=== PATIENT | female | born 1980 | race Caucasian/White ===

== ENCOUNTER 2016-08-08 23:18 | Emergency (ER) | payer MEDICAID ==
[~2016-08-08] VITALS: Ht 167.6 cm; Wt 54.4 kg
--- OUTSIDE RECORDS SUMMARY | 2016-08-08 23:50 | External Medical Summary Rpt ---
Author Author , Organization [employer] Address Unknown Phone Unavailable Care Team Providers Care Coremaker Floor Name Role Phone [facility] Unavailable Unavailable [facility] [place] [facility] DEMOND LAGOS Unavailable Unavailable ROGELIO MERCADO Unavailable Unavailable [facility], Unavailable Unavailable [facility] Unavailable [facility]available [facility], Unavailable [facility] Unavailable Unavailable [facility]available [facility]available [facility] Unavailable [facility]available HOSPITA, [facility] Un[facility], [facility] Un[facility], [facility] VALERIA GUEVARA, Unavailable Unavailable VALERIA GUEVARA SALLY RHO, SALLY Unavailable Unavailable [facility] Un[facility], [facility], Unavailable Unavailable [facility], [facility] Unavailable [facility] Unavailable Unavailable [facility], [facility] Unavailable Unavailable [facility], [facility] Saqib'Saqib WISE'TIFFANI Unavailable Unavailable [facility] LUZ ASHER, Unavailable Unavailable LU[facility] ASHER SHEEBALYUDMILA VAN, Unavailable Unavailable SHEEBA, LYUDMILA [facility], Unavailable Unavailable [facility], [facility]available Unavailable [facility] Unavailable Unavailable [facility] Unavailable Unavailable SALIMA NATI, SALIMA NATI [facility]available Unavailable [facility] Unavailable Unavailable [place] Unavailable Unavailable [place] Unavailable Unavailable [facility] SAIRA CHÁVEZ Unavailable Unavailable [facility], Unavailable Unavailable [facility] Unavailable Unavailable [facility], [facility] YONI SINGH YONI Unavailable Unavailable YONI GORDON Unavailable Unavailable SAMANTHA Purpose Continuity of Care Document - 06-24-2008 through 2016 Problems Code Diagnosis DOS Provider Status N920 EXCESS & 05-04-2016 [facility] FREQUENT [facility] MENSTRUATIO N W/REGULAR CYCLE Z302 ENCOUNTER 05-04-2016 [facility] STERILIZATI INC ON N854 MALPOSITION 05-03-2016 [facility] INC Q91648 ENCOUNTER 05-03-2016 [facility] PREPROCEDUR INC AL LABORATORY EXAM S83064 ENCOUNTER 03-29-2016 [facility] SHAREPOINT SPECIALIST EXAM LLC GENERAL RTN W/O ABNORMAL FIND Z113 ENCOUNTER 03-29-2016 [facility] SCREEN LLC INFECTIONS SEXL MODE TRANSMISSN 7242 LUMBAGO 11-21-2014 [facility] 7384 ACQUIRED 11-21-2014 [facility] THESIS S PLC 06794 PAIN IN 11-03-2014 [facility] JOINT, SHOULDER REGION 7231 CERVICALGIA 11-03-2014 [facility] 7262 OTHER 11-03-2014 [facility] AFFECTIONS OF SHOULDER REGION NEC 7802 SYNCOPE AND 09-19-2014 [facility] 87245 OTHER 09-19-2014 [facility] 7804 DIZZINESS 09-19-2014 [facility] GIDD[facility] 81368 CHEST PAIN 09-19-2014 [facility] UNSPECIFIED RADIOLOGY V154 PERS HX 02-03-2014 [facility] TRAUMA PRS [facility] 37772 PAIN IN 08-15-2013 YONI SINGH JOINT, FOREARM 59155 SPRAIN AND 08-15-2013 [facility] STRAIN OF UNSPECIFIED SITE OF WRIST V242 ROUTINE 05-02-2012 [facility] 650 NORMAL 03-22-2012 [facility] 734 FLAT FOOT 03-22-2012 [facility] V270 OUTCOME OF 03-22-2012 [facility] SERV SINGLE [facility] LIVEBORN V222 03-19-2012 [facility], SERV INCIDENTAL FOUND[facility] V221 SUPERVISION 12-27-2011 [facility] OTHER DIAGNOSTICS NORMAL V2881 ENCOUNTER 11-16-2011 [facility] FOR SERV ANATOMIC [facility] SURVEY 2662 OTHER 08-17-2011 [facility] S CENTER V7242 08-17-2011 [facility] OR TEST [facility] POSITIVE CENTER RESULT 53905 URGE 07-01-2008 [facility] INCONTINENC HEALTHCARE E CENTER V7231 ROUTINE 07-01-2008 [facility] GYNECOLOGIC HEALTHCARE AL CENTER EXAMINATION V745 SCREENING 07-01-2008 LABORATORY EXAMINATION [facility] FOR [facility] DISEASE V762 SCREENING 07-01-2008 LABORATORY FOR [facility] OF MALIGNANT SARA NEOPLASM OF HOLDINGS THE CERVIX 2512 HYPOGLYCEMI 06-27-2008 [facility] A, HEALTHCARE UNSPECIFIED CENTER 24560 OTHER 06-27-2008 LAB [facility] MALAISE AND AMERIC FATIGUE HOLDING 7906 OTHER 06-27-2008 LAB [facility] ABNORMAL AMERIC BLOOD HOLDING CHEMISTRY 6264 IRREGULAR 06-24-2008 [facility] MENSTRUAL HEALTHCARE CYCLE CENTER Medications Na ND Rx Da Fi Fi Am Da Di Ph RX Ph St me C No te ll ll ou ys ag ar # ys at rm s nt no ma ic us Or Da si cy ia de te s n re d OX 13 03 03 30 3 00 CL Ac YC 10 -0 -3 .0 00 IN ti OD 70 1- 1- 00 00 IC ve ON 04 20 20 42 E- 40 17 17 38 PH AC 1 32 AR ET MA AM CY IN OP HE N 5- 32 5 BR 60 12 01 18 3 00 WA Ac OM 43 -1 -2 0. 00 L- ti PH 20 6- 0- 00 07 MA ve EN 27 20 20 0 45 RT IR 51 16 17 91 -P 6 37 PH SE AR UD MA OE CY PH ED #5 -D 91 M SY R WI 65 04 10 04 30 30 WA 71 DA Ac EN 16 -2 -0 .0 L- 23 BN ti AT 20 8- 8- 00 MA 70 EY ve AL 66 20 20 RT 0 [address] 0 PH NA US AR MA TA CY BL ET #5 71 WI 65 04 08 03 30 30 WA 71 DA Ac EN 16 -2 -1 .0 L- 23 BN ti AT 20 8- 3- 00 MA 70 EY ve AL 66 20 20 RT 0 [address] 0 PH NA US AR MA TA CY BL ET #5 71 WI 65 04 07 02 30 30 WA 71 DA Ac EN 16 -2 -1 .0 L- 23 BN ti AT 20 8- 6- 00 MA 70 EY ve AL 66 20 20 RT 0 [address] 0 PH NA US AR MA TA CY BL ET #5 71 WI 65 04 06 01 30 30 WA 71 DA Ac EN 16 -2 -0 .0 L- 23 BN ti AT 20 8- 4- 00 MA 70 EY ve AL 66 20 20 RT 0 [address] 0 PH NA US AR MA TA CY BL ET #5 71 CH 00 04 05 00 47 10 WA 71 BA Ac LO 11 -1 -0 3. L- 22 LD ti RH 62 8- 7- 00 MA 13 WI ve EX 00 20 20 0 RT 6 N ID 11 09 09 AA IN 6 PH RO E AR N 0. MA B 12 CY % RI #5 NS 71 E WI 65 04 05 00 30 30 WA 71 DA Ac EN 16 -2 -0 .0 L- 23 BN ti AT 20 8- 7- 00 MA 70 EY ve AL 66 20 20 RT 0 [address] 0 PH NA US AR MA TA CY BL ET #5 71 00 04 05 00 30 5 WA 44 BA Ac 40 -1 -0 .0 L- 85 LD ti 60 8- 7- 00 MA 83 WI ve 35 20 20 RT 8 N 80 09 09 AA 1 PH RO AR N MA B CY #5 71 53 04 05 00 30 10 WA 71 BA Ac 74 -1 -0 .0 L- 22 LD ti 60 8- 7- 00 MA 13 WI ve 13 20 20 RT 4 N 70 09 09 AA 5 PH RO AR N MA B CY #5 71 PE 00 04 05 00 28 7 WA 71 BA Ac NI 78 -1 -0 .0 L- 22 LD ti CI 11 8- 7- 00 MA 13 WI ve LL 65 20 20 RT 5 N IN 50 09 09 AA 1 PH RO VK AR N MA B 50 CY 0 MG #5 71 TA BL ET Procedures Procedure DOS Code Location Performer Comment HYSTEROSC 12200 [facility] OPY 7 [facility] ENDOMETRI INC INC AL ABLATION LAPAROSCO 79836 RENEA MEIER PY W/RMVL 7 [facility] [address] [facility] SURG 7 LLC PATHOLOGY GROSS&[place] [address] [facility], [facility] SURG 7 LLC PATHOLOGY GROSS&BOBY ROSCOPIC EXAM ANESTHESI 37543 [facility] SAIRA A 7 ANESTH INTRAPERI OF THE TONEAL BLUE LOWER ABD W/LAPS NOS COLLECTIO 14943 [facility] N VENOUS 7 [facility] BLOOD INC INC VENIPUNCT URE GONADOTRO 11988 [facility] PIN 7 [facility] CHORIONIC INC INC QUALITATI VE BLOOD 86307 [facility] COUNT 7 [facility] COMPLETE INC INC AUTO&AUTO DIFRNTL WBC BASIC 93452 RENEA MEIER METABOLIC 7 [facility] PANEL INC INC CALCIUM TOTAL ENDOMETRI 55294 [facility] AL BX 7 PHYSICIAN PHYSICIAN W/WO S GROUP S GROUP ENDOCERVI X BX W/[place] L[place] [address] [facility], [facility], SURG 7 [facility] PATHOLOGY GROSS&[place] [address] [facility] TRANSVAGI 7 PHYSICIAN NAL S GROUP IADNA 80508 [facility], PICKLESIM NEISSERIA 7 [facility] JR GONORRHOE AE AMPLIFIED PROBE TQ CYTP C/V 10140 [facility] P[facility] AUTO THIN 7 [facility] JR LYR PREPJ SCR MNL RESCR PHYS IADNA 97473 [facility], P[facility] CHLAMYDIA 7 [facility] JR TRACHOMAT IS AMPLIFIED PROBE TQ RADEX 51840 [facility] TRA SPINE 5 [place] LUMBOSACR ORTHOPAED AL ONLY ICS PLC BENDING 2/3 VIEWS RADEX 58353 [facility] [place] SALLY SHOULDER 5 RADIOLOGY RHO COMPLETE MINIMUM 2 VIEWS RADEX 90586 [facility] [place] SALLY SPINE 5 RADIOLOGY RHO LUMBOSACR AL 2/3 VIEWS RADEX 93733 [facility] [place] SALLY SPINE 5 RADIOLOGY RHO CERVICAL 2 OR 3 VIEWS AMB A0427 [facility] SERVICE 5 EWELINA [facility] EMS CO EMS [place] [address] [facility] [place] S[facility] HEAD/BRAI 5 RADIOLOGY RHO N W/O CONTRAST MATERIAL RADIOLOGI 79082 [facility] [place] SALLY C 5 RADIOLOGY RHO EXAMINATI ON CHEST SINGLE VIEW FRONTAL ECG 43353 [facility] NATI ROUTINE 5 KIN ECG EMERGENCY W/LEAST PHYS 12 LDS I&R ONLY GROUND A0425 [facility] MILEA 5 EWELINA THEODORE PER CO EMS CO EMS STATUTE MILE RADEX 41209 [facility] WRIST 4 [facility] HOSP MINIMUM 3 VIEWS WRIST L3908 [facility] HAND 4 ORTHOSIS EXT CONTROL COCK-UP PREFAB VAGINAL 71671 [facility] DELIVERY 3 MEDICAL LIVESTOCK RANCH HAND ONLY SERV W/POSTPAR FOUNDATIO [facility] 734 [facility] INDUCTION 3 N N OF LABOR [facility] HOSPITA OTHER 7309 [facility] ARTIFICIA 3 N N L [facility] MEMBRANES EPISIOTOM 736 [facility] Y 3 N N [facility] HOSPITA OTHER 7359 [facility] MANUALLY 3 N N ASSISTED [facility] DELIVERY HOSPITA HOSPITA URNLS DIP 45004 [facility] 2 MEDICAL LIVESTOCK RANCH HAND STICK/TAB SERV LET RGNT FOUNDATIO AUTO W/O MICROSCOP Y CUL 14908 [facility] PRSMPTV 2 DIAGNOSTI DIAGNOSTI PTHGNC CS CS ORGANISM SCRN W/COLONY ESTIMJ URNLS DIP 45172 [facility] 2 MEDICAL LIVESTOCK RANCH HAND STICK/TAB SERV LET RGNT FOUNDATIO AUTO W/O MICROSCOP Y URNLS DIP 46577 [facility] 2 MEDICAL LIVESTOCK RANCH HAND STICK/TAB SERV LET RGNT FOUNDATIO AUTO W/O MICROSCOP Y COLLECTIO 27277 [facility] N VENOUS 2 DIAGNOSTI DIAGNOSTI BLOOD CS CS VENIPUNCT URE GLUCOSE 28203 [facility] POST 2 DIAGNOSTI DIAGNOSTI GLUCOSE CS CS DOSE US PREG 79623 [place] O'TIFFANI UTERUS 2 MEDICAL ELIZABETH AFTER 1ST SERV TRIMEST FOUNDATIO 1/ GESTATION CULTURE 63636 [facility] BACTERIAL 2 DIAGNOSTI DIAGNOSTI CS CS QUANTTATI VE COLONY COUNT URINE URNLS DIP 80907 [place] 2 MEDICAL MEDICAL STICK/TAB SERV SERV LET RGNT FOUNDATIO FOUNDATIO AUTO W/O MICROSCOP Y US PREG 04314 [place] UTERUS 2 MEDICAL MEDICAL REAL TIME SERV SERV W/IMAGE FOUNDATIO FOUNDATIO DCMTN TRANSVAG CYTP C/V 55283 [facility] AUTO THIN 2 DIAGNOSTI DIAGNOSTI LYR CS CS PREPJ SCR MNL RESCR PHYS IADNA 93949 [facility] NEISSERIA 2 DIAGNOSTI DIAGNOSTI CS CS GONORRHOE AE AMPLIFIED PROBE TQ IADNA 16535 [facility] CHLAMYDIA 2 DIAGNOSTI DIAGNOSTI CS CS TRACHOMAT IS AMPLIFIED PROBE TQ URINE 13493 [facility] 2 [facility] CENTER COLOR CMPRSN METHS URINE 37230 MAKENZIE GUEVARA, 9 [facility]ALTHCAR VALERIA W TEST E CENTER VISUAL COLOR CMPRSN METHS IADNA 00663 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 CHLAMYDIA 9 Y STACIA OF Y STAC[facility] OF [place] TRACHOMAT HOLDINGS HOLDINGS IS AMPLIFIED PROBE TQ IADNA 58872 LABORATOR LABORATOR NEISSERIA 9 Y STACIA OF Y [facility] [place] GONORRHOE HOLDINGS HOLDINGS AE AMPLIFIED PROBE TQ CYTP C/V 91436 LABORATOR LABORATOR AUTO THIN 9 Y STACIA OF Y STACIA OF LYR [place] PREPJ SCR HOLDINGS HOLDINGS MNL RESCR PHYS IADNA 97370 LABORATOR LABORATOR PAPILLOMA 9 Y STACIA OF Y STACIA OF VIRUS [place] HUMAN HOLDINGS HOLDINGS AMPLIFIED PROBE TQ URNLS DIP 38670 HORIZON GRAVES, 9 HEALTHCAR VALERIA W STICK/TAB E CENTER LET RGNT AUTO W/O MICROSCOP Y COLLECTIO 66359 MAKENZIE GUEVARA, N VENOUS 9 [facility] VALERIA W BLOOD E CENTER VENIPUNCT URE LIPID 99087 LAB ST[facility] LAB STACIA PANEL 9 AMERIC AMER[facility] HOLDING HOLDING GENERAL 73178 LAB STACIA LAB STACIA HEALTH 9 AMERIC AMERIC PANEL HOLDING HOLDING Encounters Encounter Start End Date Code Location Performer Type Date [facility] RENEA - 7 7 [facility] RENEA - 7 7 [facility] OUTPATIEN INC INITIAL 12506 [facility] PREVENTIV 7 7 PHYSICIAN E S GROUP MEDICINE NEW PT AGE 18-39YRS OFFICE 58171 [facility] TRA CONSULTAT 5 5 [place] ION ORTHOPAED NEW/ESTAB ICS PLC PATIENT 40 MIN OFFICE 50343 [facility] OUTPATIEN 5 5 T VISIT 15 MINUTES OFFICE 23218 [facility] OUTPATIEN 5 5 T [facility] 30 MINUTES [facility] - 5 5 N OUTPATIEN COMMUNTIY T HOSPITA EMERGENCY 11274 [facility] DEPT 5 5 KIN VISIT EMERGENCY HIGH PHYS SEVERITY& THREAT FUNCJ OFFICE 97160 [facility]LE[facility] VALLEJO OUTPATIEN 4 4 SAMANTHA SAMANTHA T [facility] 20 MINUTES [facility] CENTRAL - 4 4 [facility] OUTPATIEN HOSP T OFFICE 11320 [facility] MEEKSMAN OUTPATIEN 3 3 MEDICAL LIVESTOCK RANCH HAND T VISIT SERV 15 FOUNDATIO MINUTES [facility] - 3 3 N INPATIENT COMMUNITY HOSPITA OFFICE 05498 [facility] MUHAMMAD OUTPATIEN 3 3 MEDICAL LIVESTOCK RANCH HAND T VISIT SERV 15 FOUNDATIO MINUTES OFFICE 44548 [facility] MUHAMMAD OUTPATIEN 3 3 MEDICAL LIVESTOCK RANCH HAND T VISIT SERV 15 FOUNDATIO MINUTES OFFICE 52064 CONST[facility]IN MEEKSMAN OUTPATIEN 3 3 MEDICAL LIVESTOCK RANCH HAND T VISIT SERV 15 FOUNDATIO MINUTES OFFICE 66602 [facility] AARONJB OUTPATIEN 3 3 MEDICAL LIVESTOCK RANCH HAND T VISIT SERV 15 FOUNDATIO MINUTES OFFICE 75294 CONSTANTIN MEEKSMAN OUTPATIEN 2 2 MEDICAL LIVESTOCK RANCH HAND T VISIT SERV 15 FOUNDATIO MINUTES OFFICE 32184 CONST[facility]IN MEEKSMAN OUTPATIEN 2 2 MEDICAL LIVESTOCK RANCH HAND T VISIT SERV 15 FOUNDATIO MINUTES OFFICE 87966 CONSTANTIN MEEKSMAN OUTPATIEN 2 2 MEDICAL LIVESTOCK RANCH HAND T VISIT SERV 15 FOUNDATIO MINUTES OFFICE 38499 CONST[facility]IN AARONJB OUTPATIEN 2 2 MEDICAL LIVESTOCK RANCH HAND T VISIT SERV 15 FOUNDATIO MINUTES OFFICE 68074 CONST[facility]IN AARONJB OUTPATIEN 2 2 MEDICAL LIVESTOCK RANCH HAND T VISIT SERV 15 FOUNDATIO MINUTES OFFICE 55879 CONSTANTIN AARONJB OUTPATIEN 2 2 MEDICAL LIVESTOCK RANCH HAND T VISIT SERV 15 FOUNDATIO MINUTES OFFICE 39032 CONSTANTIN AARONJB OUTPATIEN 2 2 MEDICAL LIVESTOCK RANCH HAND T VISIT SERV 15 FOUNDATIO MINUTES OFFICE 87253 CONSTANTIN AARONJB OUTPATIEN 2 2 MEDICAL LIVESTOCK RANCH HAND T VISIT SERV 15 FOUNDATIO MINUTES N OFFICE 13615 MS OUTPATIEN 2 2 MEDICAL T NEW 30 SERV MINUTES FOUNDATIO OFFICE 74744 NACHO NACHO OUTPATIEN 2 2 [facility] 20 [facility] HEALTH MINUTES CENTER CENTER PERIODIC 02155 HORIZON GRAVES, PREVENTIV 9 9 [facility] VALERIA W E MED EST E CENTER PATIENT 18-39 YRS OFFICE 12804 MAKENZIE SHEEBA, OUTPATIEN 9 9 [facility] NEW 30 E CENTER MINUTES
--- OUTSIDE RECORDS SUMMARY | 2016-08-08 23:50 | External Medical Summary Rpt ---
Author Author , Organization [employer] Address Unknown Phone Unavailable Care Team Providers Care Linotyper Name Role Phone [facility], Unavailable Unavailable [facility] [place] [facility] DEMOND LAGOS Unavailable Unavailable ROGELIO MERCADO Unavailable Unavailable [facility], Unavailable Unavailable [facility] Unavailable [facility]available [facility], Unavailable [facility] Unavailable Unavailable [facility]available [facility]available [facility] Unavailable Unavailable HOSPITA, [facility] Unavailable Unavailable EMS, [facility] Unavailable Unavailable EMS, [facility] VALERIA GUEVARA, Unavailable Unavailable VALERIA GUEVARA SALLY RHO, SALLY Unavailable Unavailable [facility] Un[facility] Un[facility], [facility], Unavailable Unavailable [facility] GUILLORY TRA, GUILLORY TRA Unavailable [...] Unavailable SALIMA NATI, SALIMA NATI Unavailable Unavailable [facility] Unavailable Unavailable [facility], [facility] Unavailable Unavailable [facility], [facility] Unavailable Unavailable [facility] SAIRA CHÁVEZ Unavailable Unavailable [facility], Unavailable Unavailable [facility] Unavailable Unavailable #571, [facility] [...] 05-03-2016 [facility] [id number] ENCOUNTER 05-03-2016 [facility] PREPROCEDUR INC AL LABORATORY EXAM [id number] ENCOUNTER 03-29-2016 [facility], ACETYLENE TORCH SOLDERER EXAM LLC GENERAL RTN W/O ABNORMAL FIND Z113 ENCOUNTER 03-29-2016 [facility], SCREEN LLC INFECTIONS SEXL MODE TRANSMISSN 7242 LUMBAGO 11-21-2014 [facility] 7384 ACQUIRED 11-21-2014 [facility] THESIS S PLC 72414 PAIN IN 11-03-2014 [facility] JOINT, SHOULDER REGION 7231 CERVICALGIA 11-03-2014 [facility] 7262 OTHER 11-03-2014 [facility] AFFECTIONS OF SHOULDER REGION NEC 7802 SYNCOPE AND 09-19-2014 [facility] 08272 OTHER 09-19-2014 [facility] 7804 DIZZINESS 09-19-2014 [facility]- AND [facility] GIDDINESS EMS 89437 CHEST PAIN 09-19-2014 [facility] UNSPECIFIED RADIOLOGY V154 PERS HX 02-03-2014 [facility] TRAUMA PRS [facility] 24381 PAIN IN 08-15-2013 YONI SINGH JOINT, FOREARM 82526 SPRAIN AND 08-15-2013 [facility] STRAIN OF UNSPECIFIED SITE OF WRIST V242 ROUTINE 05-02-2012 [facility] FOLLOW-UP F[facility] 650 NORMAL 03-22-2012 [facility] 734 FLAT FOOT 03-22-2012 [facility] V270 OUTCOME OF 03-22-2012 [facility] SINGLE FOUNDATIO LIVEBORN V222 03-19-2012 [facility], SERV INCIDENTAL FOUNDATIO V221 SUPERVISION 12-27-2011 [facility] OTHER DIAGNOSTICS NORMAL V2881 ENCOUNTER 11-16-2011 [facility] FOR SERV ANATOMIC FOUNDATIO SURVEY 2662 OTHER 08-17-2011 [facility] S CENTER V7242 08-17-2011 [facility] OR TEST [facility] POSITIVE CENTER RESULT 10615 URGE 07-01-2008 [facility] INCONTINENC HEALTHCARE E CENTER V7231 ROUTINE 07-01-2008 [facility] GYNECOLOGIC HEALTHCARE AL CENTER EXAMINATION V745 SCREENING 07-01-2008 LABORATORY EXAMINATION STACIA OF FOR SARA VENEREAL HOLDINGS DISEASE V762 SCREENING 07-01-2008 LABORATORY FOR STACIA OF MALIGNANT SARA NEOPLASM OF HOLDINGS THE CERVIX 2512 HYPOGLYCEMI 06-27-2008 [facility] A, HEALTHCARE UNSPECIFIED CENTER 39570 OTHER 06-27-2008 LAB STACIA MALAISE AND AMERIC FATIGUE HOLDING 7906 OTHER 06-27-2008 LAB STACIA ABNORMAL AMERIC BLOOD HOLDING CHEMISTRY 6264 IRREGULAR 06-24-2008 [facility] MENSTRUAL HEALTHCARE CYCLE CENTER Medications Na ND [...] ED #5 -D 91 M SY R DC 65 04 10 04 30 30 WA 71 DA Ac EN 16 -2 -0 .0 L- 23 BN ti AT 20 8- 8- 00 MA 70 EY ve AL 66 20 20 RT 0 [address] 0 PH NA US AR MA TA CY BL ET #5 71 DC 65 04 08 03 30 30 WA 71 DA Ac EN 16 -2 -1 .0 L- 23 BN ti AT 20 8- 3- 00 MA 70 EY ve AL 66 20 20 RT 0 [address] 0 PH NA US AR MA TA CY BL ET #5 71 DC 65 04 07 02 30 30 WA 71 DA Ac EN 16 -2 -1 .0 L- 23 BN ti AT 20 8- 6- 00 MA 70 EY ve AL 66 20 20 RT 0 [address] 0 PH NA US AR MA TA CY BL ET #5 71 DC 65 04 06 01 30 30 WA [...] CY % RI #5 NS 71 E DC 65 04 05 00 30 30 WA [...] Procedure DOS Code Location Performer Comment HYSTEROSC 70222 [facility] OPY 7 [facility] ENDOMETRI INC INC AL ABLATION LAPAROSCO 97060 RENEA MEIER PY W/RMVL 7 [facility] [place] [address] [facility], DEMOND SURG 7 LLC PATHOLOGY GROSS&[place] [address] [facility], [facility] SURG 7 LLC PATHOLOGY GROSS&BOBY ROSCOPIC EXAM ANESTHESI 25368 COMMUNITY SAIRA A 7 ANESTH INTRAPERI OF THE TONEAL BLUE LOWER ABD W/LAPS NOS COLLECTIO 59181 [facility] N VENOUS 7 [facility] BLOOD INC INC VENIPUNCT URE GONADOTRO 21771 [facility] PIN 7 [facility] CHORIONIC INC INC QUALITATI VE BLOOD 48714 [facility] COUNT 7 [facility] COMPLETE INC INC AUTO&AUTO DIFRNTL WBC BASIC 04699 RENEA MEIER METABOLIC 7 [facility] PANEL INC INC CALCIUM TOTAL ENDOMETRI 24442 [facility] AL BX 7 PHYSICIAN PHYSICIAN W/WO S GROUP S GROUP ENDOCERVI X BX W/[place] [address] [facility], [facility] SURG 7 [facility] PATHOLOGY GROSS&[place] [address] [facility] MERCADO TRANSVAGI 7 PHYSICIAN NAL S GROUP IADNA 02168 [facility], PICKLESIM NEISSERIA [facility] ER JR GONORRHOE AE AMPLIFIED PROBE TQ CYTP C/V 92121 [facility] PICKLES[facility] AUTO THIN 7 [facility] ER JR LYR PREPJ SCR MNL RESCR PHYS IADNA 73026 [facility], PICKLESIM CHLAMYDIA 7 [facility] ER JR TRACHOMAT IS AMPLIFIED PROBE TQ RADEX 77148 [facility] TRA SPINE 5 [place] LUMBOSACR ORTHOPAED AL ONLY ICS PLC BENDING 2/3 VIEWS RADEX 14524 [facility] [place] SALLY SHOULDER 5 RADIOLOGY RHO COMPLETE MINIMUM 2 VIEWS RADEX 36587 [facility] [place] SALLY SPINE 5 RADIOLOGY RHO LUMBOSACR AL 2/3 VIEWS RADEX 63904 [facility] [place] SALLY SPINE 5 RADIOLOGY RHO CERVICAL 2 OR 3 VIEWS AMB A0427 [facility] SERVICE 5 EWELINA [facility] ALS CO EMS CO EMS [place]SP[place] [address] [facility] [place] SALLY HEAD/BRAI 5 RADIOLOGY RHO N W/O CONTRAST MATERIAL RADIOLOGI 93793 [facility] [place] SALLY C 5 RADIOLOGY RHO EXAMINATI ON CHEST SINGLE VIEW FRONTAL ECG 01019 [facility] NATI ROUTINE 5 KIN ECG EMERGENCY W/LEAST PHYS 12 LDS I&R ONLY GROUND A0425 [facility] MILEA 5 EWELINA THEODORE PER CO EMS CO EMS STATUTE MILE RADEX 50080 [facility] W[facility]ST 4 [facility] HOSP MINIMUM 3 VIEWS WRIST L3908 [facility] HAND 4 ORTHOSIS EXT CONTROL COCK-UP PREFAB VAGINAL 56188 [facility] DELIVERY 3 MEDICAL MOBILE HOME MECHANIC ONLY SERV W/POSTPAR FOUNDATIO [facility]ICAL 734 [facility] INDUCTION 3 N N OF LABOR [facility] HOSPITA OTHER 7309 [facility] ARTIFICIA 3 N N L RUPTURE [facility] EPISIOTOM 736 [facility] Y 3 N N [facility] HOSP[facility] HOSPITA OTHER 7359 [facility] MANUALLY 3 N N ASSISTED [facility] DELIVERY HOSPITA HOSPITA URNLS DIP 68938 [facility] 2 MEDICAL MOBILE HOME MECHANIC STICK/TAB SERV LET RGNT FOUNDATIO AUTO W/O MICROSCOP Y CUL 59040 [facility] PRSMPTV 2 DIAGNOSTI DIAGNOSTI PTHGNC CS CS ORGANISM SCRN W/COLONY ESTIMJ URNLS DIP 79074 [facility] 2 MEDICAL MOBILE HOME MECHANIC STICK/TAB SERV LET RGNT FOUNDATIO AUTO W/O MICROSCOP Y URNLS DIP 56666 [facility] 2 MEDICAL MOBILE HOME MECHANIC STICK/TAB SERV LET RGNT FOUNDATIO AUTO W/O MICROSCOP Y COLLECTIO 41879 [facility] N VENOUS 2 DIAGNOSTI DIAGNOSTI BLOOD CS CS VENIPUNCT URE GLUCOSE 58912 [facility] POST 2 DIAGNOSTI DIAGNOSTI GLUCOSE CS CS DOSE US PREG 37182 [place] O'TIFFANI UTERUS 2 MEDICAL ELIZABETH AFTER 1ST SERV TRIMEST FOUNDATIO 1/ GESTATION CULTURE 91466 [facility] BACTERIAL 2 DIAGNOSTI DIAGNOSTI CS CS QUANTTATI VE COLONY COUNT URINE URNLS DIP 85807 [place] 2 MEDICAL MEDICAL STICK/TAB SERV SERV LET RGNT FOUNDATIO FOUNDATIO AUTO W/O MICROSCOP Y US PREG 38836 [place] UTERUS 2 MEDICAL MEDICAL REAL TIME SERV SERV W/IMAGE FOUNDATIO FOUNDATIO DCMTN TRANSVAG CYTP C/V 56586 [facility] AUTO THIN 2 DIAGNOSTI DIAGNOSTI LYR CS CS PREPJ SCR MNL RESCR PHYS IADNA 41015 [facility] NEISSERIA 2 DIAGNOSTI DIAGNOSTI CS CS GONORRHOE AE AMPLIFIED PROBE TQ IADNA 38921 [facility] CHLAMYDIA 2 DIAGNOSTI DIAGNOSTI CS CS TRACHOMAT IS AMPLIFIED PROBE TQ URINE 25195 [facility] 2 [facility] VISUAL CENTER CENTER COLOR CMPRSN METHS URINE 73186 MAKENZIE GUEVARA, 9 [facility] W TEST E CENTER VISUAL COLOR CMPRSN METHS IADNA 39899 LABORATOR LABORATOR CHLAMYDIA 9 Y STACIA OF Y STACIA OF [place] TRACHOMAT HOLDINGS HOLDINGS IS AMPLIFIED PROBE TQ IADNA 65362 LABORATOR LABORATOR NEISSERIA 9 Y STACIA OF Y STACIA [place] GONORRHOE HOLDINGS HOLDINGS AE AMPLIFIED PROBE TQ CYTP C/V 98871 LABORATOR LABORATOR AUTO THIN 9 Y STACIA OF Y STACIA OF LYR [place] PREPJ SCR HOLDINGS HOLDINGS MNL RESCR PHYS IADNA 46611 LABORATOR LABORATOR PAPILLOMA 9 Y STACIA OF Y STACIA OF VIRUS [place] HUMAN HOLDINGS HOLDINGS AMPLIFIED PROBE TQ URNLS DIP 01627 HORIZON GRAVES, 9 [facility]ALTHCAR VALERIA W STICK/TAB E CENTER LET RGNT AUTO W/O MICROSCOP Y COLLECTIO 85164 MAKENZIE GUEVARA, N VENOUS 9 [facility] VALERIA W BLOOD E CENTER VENIPUNCT URE LIPID 27973 LAB STACIA LAB STACIA PANEL 9 AMERIC AMERIC HOLDING HOLDING GENERAL 51606 LAB STACIA LAB STACIA HEALTH 9 AMERIC AMERIC PANEL HOLDING HOLDING Encounters Encounter Start End Date Code Location Performer Type Date [facility] RENEA - 7 7 [facility] OUTPATIEN INC [facility] RENEA - 7 7 [facility] OUTPATIEN INC INITIAL 77050 [facility] PREVENTIV 7 7 PHYSICIAN E S GROUP MEDICINE NEW PT AGE 18-39YRS OFFICE 39567 [facility] TRA CONSULTAT 5 5 [place] ION ORTHOPAED NEW/ESTAB ICS PLC PATIENT 40 MIN OFFICE 04041 [facility] OUTPATIEN 5 5 T VISIT 15 MINUTES OFFICE 88040 [facility] OUTPATIEN 5 5 T [facility] 30 MINUTES [facility] - 5 5 N OUTPATIEN COMMUNTIY T HOSPITA EMERGENCY 48983 [facility] DEPT 5 5 KIN VISIT EMERGENCY HIGH PHYS SEVERITY& THREAT FUNCJ OFFICE 49206 [facility] VALLEJO OUTPATIEN 4 4 SAMANTHA SAMANTHA T [facility] 20 MINUTES [facility] CENTRAL - 4 4 [facility] OUTPATIEN HOSP T OFFICE 50936 CONSTANT[facility] MEEKSMAN OUTPATIEN 3 3 MEDICAL MOBILE HOME MECHANIC T VISIT SERV 15 FOUNDATIO MINUTES [facility] - 3 3 N INPATIENT COMMUNITY HOSPITA OFFICE 70543 CONST[facility]IN MUHAMMAD OUTPATIEN 3 3 MEDICAL MOBILE HOME MECHANIC T VISIT SERV 15 FOUNDATIO MINUTES OFFICE 70757 [facility] MUHAMMAD OUTPATIEN 3 3 MEDICAL MOBILE HOME MECHANIC T VISIT SERV 15 FOUNDATIO MINUTES OFFICE 67034 CONSTANTIN MEEKSMAN OUTPATIEN 3 3 MEDICAL MOBILE HOME MECHANIC T VISIT SERV 15 FOUNDATIO MINUTES OFFICE 06645 CONSTANTIN AARONJB OUTPATIEN 3 3 MEDICAL MOBILE HOME MECHANIC T VISIT SERV 15 FOUNDATIO MINUTES OFFICE 18032 CONSTANTIN MEEKSMAN OUTPATIEN 2 2 MEDICAL MOBILE HOME MECHANIC T VISIT SERV 15 FOUNDATIO MINUTES OFFICE 17437 CONSTANTIN MEEKSMAN OUTPATIEN 2 2 MEDICAL MOBILE HOME MECHANIC T VISIT SERV 15 FOUNDATIO MINUTES OFFICE 51658 CONSTANTIN MEEKSMAN OUTPATIEN 2 2 MEDICAL MOBILE HOME MECHANIC T VISIT SERV 15 FOUNDATIO MINUTES OFFICE 62052 CONSTANTIN AARONJB OUTPATIEN 2 2 MEDICAL MOBILE HOME MECHANIC T VISIT SERV 15 FOUNDATIO MINUTES OFFICE 69656 CONSTANTIN AARONJB OUTPATIEN 2 2 MEDICAL MOBILE HOME MECHANIC T VISIT SERV 15 FOUNDATIO MINUTES OFFICE 07884 CONSTANTIN AARONJB OUTPATIEN 2 2 MEDICAL MOBILE HOME MECHANIC T VISIT SERV 15 FOUNDATIO MINUTES OFFICE 80375 CONSTANTIN AARONJB OUTPATIEN 2 2 MEDICAL MOBILE HOME MECHANIC T VISIT SERV 15 FOUNDATIO MINUTES OFFICE 42783 CONSTANTIN AARONJB OUTPATIEN 2 2 MEDICAL MOBILE HOME MECHANIC T VISIT SERV 15 FOUNDATIO MINUTES N OFFICE 78212 MT OUTPATIEN 2 2 MEDICAL T NEW 30 SERV MINUTES FOUNDATIO OFFICE 29576 [facility] NACHO OUTPATIEN 2 2 [facility] 20 [facility] HEALTH MINUTES CENTER CENTER PERIODIC 40935 HORIZON GRAVES, PREVENTIV 9 [facility] VALERIA W E MED EST E CENTER PATIENT 18-39 YRS OFFICE 76811 MAKENZIE SHEEBA, OUTPATIEN 9 9 [facility] NEW 30 E CENTER MINUTES
--- OUTSIDE RECORDS SUMMARY | 2016-08-08 23:52 | External Medical Summary Rpt ---
Author Author , Organization [employer] Address Unknown Phone Unavailable Care Team Providers Care Mathematician Name Role Phone [facility] DEMOND LAGOS Unavailable Unavailable ROGELIO MERCADO Unavailable Unavailable [facility], Unavailable Unavailable [facility] Unavailable [facility]available [facility], Unavailable [facility] Unavailable [facility]available [facility] Unavailable Unavailable [facility] Unavailable [facility]available HOSPITA, [facility] Unavailable Unavailable EMS, [facility] Unavailable Unavailable EMS, [facility] VALERIA GUEVARA, Unavailable Unavailable VALERIA GUEVARA ASLLY RHO, SALLY Unavailable Unavailable [facility] Un[facility] Un[facility], [facility], Unavailable Unavailable [facility] TRA, [facility] TRA Unavailable Unavailable SORENSEN SAMANTHA SORENSEN Unavailable Unavailable [facility], [facility] Unavailable Unavailable [facility], [facility] Unavailable Unavailable [facility] O'Saqib WISE'TIFFANI Unavailable Unavailable [facility] LUZ ASHER, Unavailable Unavailable LUZ ASHER SHEEBALYUDMILA VAN, Unavailable Unavailable SHEEBALYUDMILA [facility], Unavailable Unavailable [facility], Unavailable Unavailable [facility] Unavailable Unavailable [facility] Unavailable Unavailable SALIMA NATI, SALIMA NATI Unavailable [facility]available [facility] Unavailable Unavailable [facility] Unavailable Unavailable [facility] Unavailable Unavailable [facility], [facility] SAIRA CHÁVEZ Unavailable Unavailable [facility], Unavailable Unavailable [facility] Unavailable Unavailable [facility], [facility] VALLEJO SAMANTHA, VALLEJO Unavailable Unavailable SAMANTHA VALLEJO SAMANTHA, VALLEJO Unavailable Unavailable SAMANTHA Purpose Continuity of Care Document - 06-24-2008 through 2016 Problems Code Diagnosis DOS Provider Status N920 EXCESS & 05-04-2016 [facility] FREQUENT [facility] MENSTRUATIO N W/REGULAR CYCLE Z302 ENCOUNTER 05-04-2016 [facility] STERILIZATI INC ON N854 MALPOSITION 05-03-2016 [facility] INC [id number] ENCOUNTER 05-03-2016 [facility] PREPROCEDUR INC AL LABORATORY EXAM [id number] ENCOUNTER 03-29-2016 [facility] PHOTOGRAPHER EXAM LLC GENERAL RTN W/O ABNORMAL FIND Z113 ENCOUNTER 03-29-2016 [facility] SCREEN [facility] INFECTIONS SEXL MODE TRANSMISSN 7242 LUMBAGO 11-21-2014 [facility] 7384 ACQUIRED 11-21-2014 [facility] THESIS S PLC 62048 PAIN IN 11-03-2014 [facility] JOINT, SHOULDER REGION 7231 CERVICALGIA 11-03-2014 [facility] 7262 OTHER 11-03-2014 [facility] AFFECTIONS OF SHOULDER REGION NEC 7802 SYNCOPE AND 09-19-2014 [facility] 38364 OTHER 09-19-2014 [facility] 7804 DIZZINESS 09-19-2014 [facility] GIDD[facility] 80689 CHEST PAIN 09-19-2014 [facility] UNSPECIFIED RADIOLOGY V154 PERS HX 02-03-2014 [facility] TRAUMA PRS [facility] 56387 PAIN IN 08-15-2013 YONI SINGH JOINT, FOREARM 43375 SPRAIN AND 08-15-2013 [facility] STRAIN OF UNSPECIFIED SITE OF WRIST V242 ROUTINE 05-02-2012 [facility] 650 NORMAL 03-22-2012 [facility] 734 FLAT FOOT 03-22-2012 [facility] V270 OUTCOME OF 03-22-2012 [facility] SINGLE [facility] LIVEBORN V222 03-19-2012 [facility], SERV INCIDENTAL [facility] V221 SUPERVISION 12-27-2011 [facility] OTHER [facility]AGNOSTICS NORMAL V2881 ENCOUNTER 11-16-2011 [facility] ANATOMIC [facility] SURVEY 2662 OTHER 08-17-2011 [facility] S CENTER V7242 08-17-2011 [facility] POSITIVE C[facility] RESULT 56064 URGE 07-01-2008 [facility] INCONTINENC HEALTHCARE E CENTER V7231 ROUTINE 07-01-2008 [facility] GYNECOLOGIC HEALTHCARE AL CENTER EXAMINATION V745 SCREENING 07-01-2008 LABORATORY EXAMINATION [facility] OF FOR [facility] DISEASE V762 SCREENING 07-01-2008 LABORATORY FOR [facility] OF MALIGNANT SARA NEOPLASM OF HOLDINGS THE CERVIX 2512 HYPOGLYCEMI 06-27-2008 [facility] [place] A, HEALTHCARE UNSPECIFIED CENTER 74016 OTHER 06-27-2008 [facility] MALAISE AND AMER[facility] FATIGUE HOLDING 7906 OTHER 06-27-2008 LAB [facility] ABNORMAL AMERIC BLOOD HOLDING CHEMISTRY 6264 IRREGULAR 06-24-2008 [facility] [place] MENSTRUAL HEALTHCARE CYCLE CENTER Medications Na ND [...] ED #5 -D 91 M SY R WY 65 04 10 04 30 30 WA 71 DA Ac EN 16 -2 -0 .0 L- 23 BN ti AT 20 8- 8- 00 MA 70 EY ve AL 66 20 20 RT 0 [address] 0 PH NA US AR MA TA CY BL ET #5 71 [place] 65 04 08 03 30 30 WA 71 DA Ac EN 16 -2 -1 .0 L- 23 BN ti AT 20 8- 3- 00 MA 70 EY ve AL 66 20 20 RT 0 [address] 0 PH NA US AR MA TA CY BL ET #5 71 [place] 65 04 07 02 30 30 WA 71 DA Ac EN 16 -2 -1 .0 L- 23 BN ti AT 20 8- 6- 00 MA 70 EY ve AL 66 20 20 RT 0 [address] 0 PH NA US AR MA TA CY BL ET #5 71 [place] 65 04 06 01 30 30 WA 71 DA Ac EN 16 -2 -0 .0 L- 23 BN ti AT 20 8- 4- 00 MA 70 EY ve AL 66 20 20 RT 0 [address] 0 PH NA US AR MA TA CY BL ET #5 71 PE 00 04 05 00 28 7 WA 71 BA Ac NI 78 -1 -0 .0 L- 22 LD ti CI 11 8- 7- 00 MA 13 WI ve LL 65 20 20 RT 5 N IN 50 09 09 AA 1 PH RO VK AR N MA B 50 CY 0 MG #5 71 TA BL ET WY 65 04 05 00 30 30 WA [...] AR N MA B CY #5 71 CH 00 04 05 00 47 10 WA 71 BA Ac LO 11 -1 -0 3. L- 22 LD ti RH 62 8- 7- 00 MA 13 WI ve EX 00 20 20 0 RT 6 N ID 11 09 09 AA IN 6 PH RO E AR N 0. MA B 12 CY % RI #5 NS 71 E 53 04 05 00 30 10 WA 71 BA Ac 74 -1 -0 .0 L- 22 LD ti 60 8- 7- 00 MA 13 WI ve 13 20 20 RT 4 N 70 09 09 AA 5 PH RO AR N MA B CY #5 71 Procedures Procedure DOS Code Location Performer Comment HYSTEROSC 74056 [facility] OPY 7 [facility] ENDOMETRI INC INC AL ABLATION LAPAROSCO 06685 [facility] PY W/RMVL 7 [facility] ADNEXAL INC INC STRUCTURE S ANESTHESI [address] [place] [address] ANESTH INTRAPERI OF THE TONEAL BLUE L[place] A[place] [address] [facility] DEMOND SURG 7 LLC PATHOLOGY GROSS&[place] [address] [facility] SURG 7 LLC PATHOLOGY GROSS&BOBY ROSCOPIC EXAM BASIC 84015 [facility] METABOLIC 7 [facility] PANEL INC INC CALCIUM TOTAL COLLECTIO 32036 [facility] N VENOUS 7 [facility] BLOOD INC INC VENIPUNCT URE GONADOTRO 22350 [facility]EA [facility] PIN 7 [facility] CHORIONIC INC INC QUALITATI VE BLOOD 04145 R[facility]EA MEIER COUNT 7 [facility] COMPLETE INC INC AUTO&[place] [address] [facility], [facility], SURG 7 [facility] LLC PATHOLOGY GROSS&BOBY ROSCOPIC EXAM ENDOMETRI 77554 [facility] AL BX 7 PHYSICIAN PHYSICIAN W/WO S GROUP S GROUP ENDOCERVI X BX W/[place] [address] [facility] TRANSVAGI 7 PHYSICIAN NAL S GROUP CYTP C/V 61738 [facility], PICKLESIM AUTO THIN 7 [facility] ER JR LYR PREPJ SCR MNL RESCR PHYS IADNA 90218 [facility], [facility] NEISSERIA 7 [facility] ER JR GONORRHOE AE AMPLIFIED PROBE TQ IADNA 76881 [facility], PICK[facility] CHLAMYDIA 7 [facility] ER JR TRACHOMAT IS AMPLIFIED PROBE TQ RADEX 09902 [facility] SPINE 5 [place] [facility] ORTHOPAED AL ONLY ICS PLC BENDING 2/3 VIEWS RADEX 52291 [facility] [place] SALLY SPINE 5 RADIOLOGY RHO LUMBOSACR AL 2/3 VIEWS RADEX 37361 [facility] [place] SALLY SHOULDER 5 RADIOLOGY RHO COMPLETE MINIMUM 2 VIEWS RADEX 35252 [facility] [place] SALLY SPINE 5 RADIOLOGY RHO CERVICAL 2 OR 3 VIEWS AMB A0427 [facility] 5 EWELINA [facility] CO EMS [place] [address] [facility] [place] SALLY HEAD/BRAI 5 RADIOLOGY RHO N W/O CONTRAST MATERIAL RADIOLOGI 64425 [facility] [place] SALLY C 5 RADIOLOGY RHO EXAMINATI ON CHEST SINGLE VIEW FRONTAL ECG 57961 [facility] NATI ROUTINE 5 KIN ECG EMERGENCY W/LEAST PHYS 12 LDS I&R ONLY GROUND A0425 [facility] MILEAGE 5 EWELINA THEODORE PER CO EMS CO EMS STATUTE MILE WRIST L3908 [facility] HAND 4 ORTHOSIS EXT CONTROL COCK-UP PREFAB RADEX 33758 SORENSEN SORENSEN WRIST 4 SAMANTHA SAMANTHA COMPLETE MINIMUM 3 VIEWS VAGINAL 20990 [facility] DELIVERY 3 MEDICAL BULL FIDDLE PLAYER ONLY SERV W/POSTPAR FOUNDATIO [facility] CARE OTHER 7359 [facility] MANUALLY 3 N N ASSISTED [facility] DELIVERY HOSPITA HOSPITA OTHER 7309 [facility] ARTIFICIA 3 N N L RUPTURE [facility] OF HOSPITA HOSPITA MEMBRANES EPISIOTOM 736 [facility] Y 3 N N [facility] HOSPITA HOSPITA MEDICAL 734 [facility] INDUCTION 3 N N OF LABOR [facility] HOSPITA HOSPITA CUL 16174 [facility] PRSMPTV 2 DIAGNOSTI DIAGNOSTI PTHGNC CS CS ORGANISM SCRN W/COLONY ESTIMJ URNLS DIP 91524 [facility] 2 MEDICAL BULL FIDDLE PLAYER STICK/TAB SERV LET RGNT FOUNDATIO AUTO W/O MICROSCOP Y URNLS DIP 13094 [facility] 2 MEDICAL BULL FIDDLE PLAYER STICK/TAB SERV LET RGNT FOUNDATIO AUTO W/O MICROSCOP Y URNLS DIP 26370 [place] TEMPLE 2 MEDICAL BULL FIDDLE PLAYER STICK/TAB SERV LET RGNT FOUNDATIO AUTO W/O MICROSCOP Y COLLECTIO 13494 [facility] N VENOUS 2 DIAGNOSTI DIAGNOSTI BLOOD CS CS VENIPUNCT URE GLUCOSE 19839 [facility] POST 2 DIAGNOSTI DIAGNOSTI GLUCOSE CS CS DOSE US PREG 51339 [place] O'TIFFANI UTERUS 2 MEDICAL ELIZABETH AFTER 1ST SERV TRIMEST FOUNDATIO 1/ GESTATION URNLS DIP 69819 [place] 2 MEDICAL MEDICAL STICK/TAB SERV SERV LET RGNT FOUNDATIO FOUNDATIO AUTO W/O MICROSCOP Y US PREG 45160 [place] UTERUS 2 MEDICAL MEDICAL REAL TIME SERV SERV W/IMAGE FOUNDATIO FOUNDATIO DCMTN TRANSVAG IADNA 21228 [facility] NEISSERIA 2 DIAGNOSTI DIAGNOSTI CS CS GONORRHOE AE AMPLIFIED PROBE TQ CYTP C/V 92421 [facility] AUTO THIN 2 DIAGNOSTI DIAGNOSTI LYR CS CS PREPJ SCR MNL RESCR PHYS IADNA 70004 [facility] CHLAMYDIA 2 DIAGNOSTI DIAGNOSTI CS CS TRACHOMAT IS AMPLIFIED PROBE TQ CULTURE 61671 [facility] BACTERIAL 2 DIAGNOSTI DIAGNOSTI CS CS QUANTTATI VE COLONY COUNT URINE URINE 63389 [facility] 2 [facility] VISUAL CENTER CENTER COLOR CMPRSN METHS URINE 57953 MAKENZIE GRAVES, 9 [facility] W TEST E CENTER VISUAL COLOR CMPRSN METHS IADNA 47973 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 CHLAMYDIA 9 Y STACIA OF Y STAC[facility] OF [facility] [place] TRACHOMAT HOLDINGS HOLDINGS IS AMPLIFIED PROBE TQ IADNA 67570 LABORATOR LABORATOR PAPILLOMA 9 Y STACIA OF Y STCAIA OF VIRUS [facility] [place] HUMAN HOLDINGS HOLDINGS AMPLIFIED PROBE TQ CYTP C/V 33067 LABORATOR 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 AUTO THIN 9 Y STACIA OF Y STACIA OF LYR [place] PREPJ SCR HOLDINGS HOLDINGS MNL RESCR PHYS IADNA 29949 LABORATOR LABORATOR NEISSERIA 9 Y STACIA OF Y [facility] [place] GONORRHOE HOLDINGS HOLDINGS AE AMPLIFIED PROBE TQ URNLS DIP 52703 HORIZON GRAVES, 9 [facility] W STICK/TAB E CENTER LET RGNT AUTO W/O MICROSCOP Y COLLECTIO 95204 HORIZON PAOLA, N VENOUS 9 [facility]IA W BLOOD E CENTER VENIPUNCT URE LIPID 11782 LAB [facility] LAB STACIA PANEL 9 [facility] HOLDING HOLDING GENERAL 11394 LAB ST[facility]IA LAB [facility] HEALTH 9 AMERIC AMERIC PANEL HOLDING HOLDING Encounters Encounter Start End Date Code Location Performer Type Date HOSPITAL [facility] - 7 7 [facility] - 7 7 [facility] OUTPATIEN INC T INITIAL 14843 [facility] PREVENTIV 7 7 PHYSICIAN E S GROUP MEDICINE NEW PT AGE 18-39YRS OFFICE 95340 [facility] CONSULTAT 5 5 [place] ION ORTHOPAED NEW/ESTAB ICS PLC PATIENT 40 MIN OFFICE 66620 [facility] OUT[facility] 5 5 T VISIT 15 MINUTES [facility] - 5 5 N OUTPATIEN COMMUNTIY T HOSPITA OFFICE 64106 [facility] OUT[facility]EN 5 5 T NEW 30 MINUTES EMERGENCY 67474 [facility] DEPT 5 5 KIN VISIT EMERGENCY HIGH PHYS SEVERITY& THREAT [facility] - 4 4 [facility]ONDO[facility] OUTPATIEN HOSP T OFFICE 13989 VALLEJO VALLEJO OUTPATIEN 4 4 SAMANTHA SAMANTHA T NEW 20 MINUTES OFFICE 39115 [facility] MUHAMMAD OUTPATIEN 3 3 MEDICAL BULL FIDDLE PLAYER T VISIT SERV 15 FOUNDATIO MINUTES [facility] - 3 3 N INPATIENT COMMUNITY HOSPITA OFFICE 06697 [facility] OUTPATIEN 3 3 MEDICAL BULL FIDDLE PLAYER T VISIT SERV 15 FOUNDATIO MINUTES OFFICE 40099 [facility] MUHAMMAD OUTPATIEN 3 3 MEDICAL BULL FIDDLE PLAYER T VISIT SERV 15 FOUNDATIO MINUTES OFFICE 39724 [facility] MEEKSMAN OUTPATIEN 3 3 MEDICAL BULL FIDDLE PLAYER T VISIT SERV 15 FOUNDATIO MINUTES OFFICE 28010 [facility] MEEKSMAN OUTPATIEN 3 3 MEDICAL BULL FIDDLE PLAYER T VISIT SERV 15 FOUNDATIO MINUTES OFFICE 87516 [facility]ST[facility] MEEKSMAN OUTPATIEN 2 2 MEDICAL BULL FIDDLE PLAYER T VISIT SERV 15 FOUNDATIO MINUTES OFFICE 71851 [facility] MEEKSMAN OUTPATIEN 2 2 MEDICAL BULL FIDDLE PLAYER T VISIT SERV 15 FOUNDATIO MINUTES OFFICE 55758 [facility]ST[facility]IN MEEKSMAN OUTPATIEN 2 2 MEDICAL BULL FIDDLE PLAYER T VISIT SERV 15 FOUNDATIO MINUTES OFFICE 24124 [facility] AARONJB OUTPATIEN 2 2 MEDICAL BULL FIDDLE PLAYER T VISIT SERV 15 FOUNDATIO MINUTES OFFICE 91161 [facility] AARONJB OUTPATIEN 2 2 MEDICAL BULL FIDDLE PLAYER T VISIT SERV 15 FOUNDATIO MINUTES OFFICE 60758 [facility]ST[facility]IN AARONJB OUTPATIEN 2 2 MEDICAL BULL FIDDLE PLAYER T VISIT SERV 15 FOUNDATIO MINUTES OFFICE 62362 [facility]ST[facility] AARONJB OUTPATIEN 2 2 MEDICAL BULL FIDDLE PLAYER T VISIT SERV 15 FOUNDATIO MINUTES OFFICE 72152 CONSTANTIN AARONJB OUTPATIEN 2 2 MEDICAL BULL FIDDLE PLAYER T VISIT SERV 15 FOUNDATIO MINUTES N OFFICE 57076 [place] OUTPATIEN 2 2 MEDICAL T NEW 30 SERV MINUTES FOUNDATIO OFFICE 97511 NACHO NACHO OUTPATIEN 2 2 [facility] 20 [facility] MINUTES CENTER CENTER PERIODIC 45878 HORIZON GRAVES, PREVENTIV 9 9 [facility] VALERIA W E MED EST E CENTER PATIENT 18-39 YRS OFFICE 44876 MAKENZIE SHEEBA, OUTPATIEN 9 9 [facility] NEW 30 E CENTER MINUTES
--- OUTSIDE RECORDS SUMMARY | 2016-08-08 23:52 | External Medical Summary Rpt ---
Demographics Preferred Language Northern Irish Marital Status Unknown Muslim Affiliation Unknown Race Unknown Ethnic Group Unknown Author Author , Organization [employer] Address Unknown Phone Unavailable Purpose Continuity of Care Document - through 2016 Immunization No patient found.
--- OUTSIDE RECORDS SUMMARY | 2016-08-08 23:52 | External Medical Summary Rpt ---
Author Author , Organization [employer] Address Unknown Phone Unavailable Care Team Providers Care Internet Site Designer Name Role Phone [facility] DEMOND LAGOS Unavailable Unavailable ROGELIO MERCADO Unavailable Unavailable [facility], Unavailable Unavailable [facility] Unavailable Unavailable [facility], Unavailable [facility]available [facility] Unavailable Unavailable [facility] Unavailable Unavailable [facility] Unavailable Unavailable HOSPITA, [facility] Unavailable Unavailable EMS, [facility] Unavailable Unavailable EMS, [facility] VALERIA GUEVARA, Unavailable Unavailable VALERIA GUEVARA SALLY RHO, SALLY Unavailable Unavailable [facility] Un[facility] Un[facility], [facility], Unavailable Unavailable [facility] GUILLORY TRA, GUILLORY [...] Unavailable SALIMA NATI, SALIMA NATI Unavailable Unavailable [facility] Unavailable Unavailable [facility] Unavailable Unavailable [place], [facility] Unavailable [facility]available [facility], [facility] SAIRA CHÁVEZ Unavailable Unavailable [facility], Unavailable Unavailable [facility] Unavailable Unavailable #571, [facility] [...] 05-03-2016 [facility] [id number] ENCOUNTER 05-03-2016 [facility] PREPROCEDUR INC AL LABORATORY EXAM [id number] ENCOUNTER 03-29-2016 [facility], 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 LLC GENERAL RTN W/O ABNORMAL FIND Z113 ENCOUNTER 03-29-2016 [facility], SCREEN LLC INFECTIONS SEXL MODE TRANSMISSN 7242 LUMBAGO 11-21-2014 [facility] 7384 ACQUIRED 11-21-2014 [facility] THESIS S [facility] 54292 PAIN IN 11-03-2014 [facility] JOINT, SHOULDER REGION 7231 CERVICALGIA 11-03-2014 [facility] 7262 OTHER 11-03-2014 [facility] AFFECTIONS OF SHOULDER REGION NEC 7802 SYNCOPE AND 09-19-2014 [facility] 81816 OTHER 09-19-2014 [facility] 7804 DIZZINESS 09-19-2014 [facility] GIDD[facility] EMS 94973 CHEST PAIN 09-19-2014 [facility] UNSPECIFIED RADIOLOGY V154 PERS HX 02-03-2014 [facility] TRAUMA PRS [facility] 95935 PAIN IN 08-15-2013 YONI SINGH JOINT, FOREARM 70581 SPRAIN AND 08-15-2013 [facility] STRAIN OF UNSPECIFIED SITE OF WRIST V242 ROUTINE 05-02-2012 [facility] FOLLOW-UP [facility] 650 NORMAL 03-22-2012 [facility] SERV [facility] 734 FLAT FOOT 03-22-2012 [facility] V270 OUTCOME OF 03-22-2012 [facility] SERV SINGLE FOUNDATIO LIVEBORN V222 03-19-2012 [facility], SERV INCIDENTAL FOUNDATIO V221 SUPERVISION 12-27-2011 [facility] OTHER DIAGNOSTICS NORMAL V2881 ENCOUNTER 11-16-2011 [facility] FOR SERV ANATOMIC FOUNDATIO SURVEY 2662 OTHER 08-17-2011 [facility] V7242 08-17-2011 [facility] POSITIVE C[facility] RESULT 42830 URGE 07-01-2008 [facility] INCONTINENC HEALTHCARE E CENTER V7231 ROUTINE 07-01-2008 [facility] GYNECOLOGIC HEALTHCARE AL CENTER EXAMINATION V745 SCREENING 07-01-2008 LABORATORY EXAMINATION STACIA OF FOR SARA VENEREAL HOLDINGS DISEASE V762 SCREENING 07-01-2008 LABORATORY FOR STACIA OF MALIGNANT SARA NEOPLASM OF HOLDINGS THE CERVIX 2512 HYPOGLYCEMI 06-27-2008 [facility] A, HEALTHCARE UNSPECIFIED CENTER 80710 OTHER 06-27-2008 LAB STACIA MALAISE AND AMERIC FATIGUE HOLDING 7906 OTHER 06-27-2008 LAB STACIA ABNORMAL AMERIC BLOOD HOLDING CHEMISTRY 6264 IRREGULAR 06-24-2008 [facility] MENSTRUAL HEALTHCARE CYCLE CENTER Medications Na [...] ED #5 -D 91 M SY R MD 65 04 10 04 30 30 WA 71 DA Ac EN 16 -2 -0 .0 L- 23 BN ti AT 20 8- 8- 00 MA 70 EY ve AL 66 20 20 RT 0 [address] 0 PH NA US AR MA TA CY BL ET #5 71 MD 65 04 08 03 30 30 WA 71 DA Ac EN 16 -2 -1 .0 L- 23 BN ti AT 20 8- 3- 00 MA 70 EY ve AL 66 20 20 RT 0 [address] 0 PH NA US AR MA TA CY BL ET #5 71 MD 65 04 07 02 30 30 WA 71 DA Ac EN 16 -2 -1 .0 L- 23 BN ti AT 20 8- 6- 00 MA 70 EY ve AL 66 20 20 RT 0 [address] 0 PH NA US AR MA TA CY BL ET #5 71 MD 65 04 06 01 30 30 WA [...] 0 MG #5 71 TA BL ET MD 65 04 05 00 30 30 WA [...] Procedure DOS Code Location Performer Comment HYSTEROSC 96313 [facility] OPY 7 [facility] ENDOMETRI INC INC AL ABLATION LAPAROSCO 76447 R[facility]EA [facility] PY W/RMVL 7 MEM H[facility] ADNEXAL INC INC STRUCTURE S ANESTHESI [address] [place] [address] ANESTH INTRAPERI OF THE TONEAL BLUE LOWER ABD W/L[place] [address] [facility] DEMOND SURG 7 LLC PATHOLOGY GROSS&[place] [address] [facility], [facility] SURG 7 LLC PATHOLOGY GROSS&BOBY ROSCOPIC EXAM BASIC 54988 [facility] METABOLIC 7 [facility] PANEL INC INC CALCIUM TOTAL COLLECTIO 34892 [facility] N VENOUS 7 [facility] BLOOD INC INC VENIPUNCT URE GONADOTRO 52263 [facility] PIN 7 [facility] CHORIONIC INC INC QUALITATI VE BLOOD 83902 R[facility]EA MEIER COUNT 7 [facility] COMPLETE INC INC AUTO&[place] [address] [facility], [facility], SURG 7 [facility] LLC PATHOLOGY GROSS&BOBY ROSCOPIC EXAM ENDOMETRI 21642 [facility] AL BX 7 PHYSICIAN PHYSICIAN W/WO S GROUP S GROUP ENDOCERVI X BX W/[place] D[place] [address] [facility] TRANSVAGI 7 PHYSICIAN NAL S GROUP CYTP C/V 46641 [facility], PICKLESIM AUTO THIN 7 [facility] ER JR LYR PREPJ SCR MNL RESCR PHYS IADNA 25867 [facility], PICKLESIM NEISSERIA 7 [facility] ER JR GONORRHOE AE AMPLIFIED PROBE TQ IADNA 02557 [facility], PICKLESIM CHLAMYDIA 7 [facility] ER JR TRACHOMAT IS AMPLIFIED PROBE TQ RADEX 70493 [facility] TRA SPINE 5 [place] LUM[place]OSA[place] ORTHOPAED AL ONLY ICS PLC BENDING 2/3 VIEWS RADEX 27649 [facility] [place] SALLY SPINE 5 RADIOLOGY RHO LUMBOSACR AL 2/3 VIEWS RADEX 51778 [facility] [place] SALLY SHOULDER 5 RADIOLOGY RHO COMPLETE MINIMUM 2 VIEWS RADEX 81673 [facility] [place] SALLY SPINE 5 RADIOLOGY RHO CERVICAL 2 OR 3 VIEWS AMB A0427 [facility] 5 EWELINA THEODORE [facility] EMS CO EMS [place] [address] [facility] [place] SALLY HEAD/BRAI 5 RADIOLOGY RHO N W/O CONTRAST MATERIAL RADIOLOGI 85789 [facility] [place] SALLY C 5 RADIOLOGY RHO EXAMINATI ON CHEST SINGLE VIEW FRONTAL ECG 02366 [facility] NATI ROUTINE 5 KIN ECG EMERGENCY W/LEAST PHYS 12 LDS I&R ONLY GROUND A0425 [facility] MILEAGE 5 EWELINA THEODORE PER CO EMS CO EMS STATUTE MILE WRIST L3908 [facility] HAND 4 ORTHOSIS EXT CONTROL COCK-UP PREFAB RADEX 50590 SORENSEN SORENSEN WRIST 4 SAMANTHA SAMANTHA COMPLETE MINIMUM 3 VIEWS VAGINAL 36974 [facility] DELIVERY 3 MEDICAL COOLER DELIVERER ONLY SERV W/POSTPAR FOUNDATIO ARIA CARE OTHER 7359 [facility] MANUALLY 3 N N ASSISTED [facility] DELIVERY HOSPITA HOSPITA OTHER 7309 [facility] ARTIFICIA 3 N N L RUPTURE [facility] OF HOSPITA HOSPITA MEMBRANES EPISIOTOM 736 [facility] Y 3 N N [facility] H[facility] HOSPITA MEDICAL 734 [facility] INDUCTION 3 N N OF LABOR [facility] HOSP[facility] HOSPITA CUL 09857 [facility] PRSMPTV 2 DIAGNOSTI DIAGNOSTI PTHGNC CS CS ORGANISM SCRN W/COLONY ESTIMJ URNLS DIP 15961 [facility] 2 MEDICAL COOLER DELIVERER STICK/TAB SERV LET RGNT FOUNDATIO AUTO W/O MICROSCOP Y URNLS DIP 23490 [facility] 2 MEDICAL COOLER DELIVERER STICK/TAB SERV LET RGNT FOUNDATIO AUTO W/O MICROSCOP Y URNLS DIP 99286 [place] 2 MEDICAL COOLER DELIVERER STICK/TAB SERV LET RGNT FOUNDATIO AUTO W/O MICROSCOP Y COLLECTIO 33082 [facility] N VENOUS 2 DIAGNOSTI DIAGNOSTI BLOOD CS CS VENIPUNCT URE GLUCOSE 08635 [facility] POST 2 DIAGNOSTI DIAGNOSTI GLUCOSE CS CS DOSE US PREG 08518 [place] [facility]'TIFF[facility] UTERUS 2 MEDICAL ELIZABETH AFTER 1ST SERV TRIMEST FOUNDATIO 1/ GESTATION URNLS DIP 92831 [place] 2 MEDICAL MEDICAL STICK/TAB SERV SERV LET RGNT FOUNDATIO FOUNDATIO AUTO W/O MICROSCOP Y US PREG 03713 [place] UTERUS 2 MEDICAL MEDICAL REAL TIME SERV SERV W/IMAGE FOUNDATIO FOUNDATIO DCMTN TRANSVAG IADNA 45168 [facility] NEISSERIA 2 DIAGNOSTI DIAGNOSTI CS CS GONORRHOE AE AMPLIFIED PROBE TQ CYTP C/V 74498 [facility] AUTO THIN 2 DIAGNOSTI DIAGNOSTI LYR CS CS PREPJ SCR MNL RESCR PHYS IADNA 90635 [facility] CHLAMYDIA 2 DIAGNOSTI DIAGNOSTI CS CS TRACHOMAT IS AMPLIFIED PROBE TQ CULTURE 93265 [facility] BACTERIAL 2 DIAGNOSTI DIAGNOSTI CS CS QUANTTATI VE COLONY COUNT URINE URINE 62834 [facility] 2 [facility] VISUAL CENTER CENTER COLOR CMPRSN METHS URINE 57064 MAKENZIE GRAVES, 9 [facility] W TEST E CENTER VISUAL COLOR CMPRSN METHS IADNA 96217 LABORATOR LABORATOR CHLAMYDIA 9 Y STACIA OF Y STACIA OF [place] TRACHOMAT HOLDINGS HOLDINGS IS AMPLIFIED PROBE TQ IADNA 25333 LABORATOR LABORATOR PAPILLOMA 9 Y STACIA OF Y STACIA OF VIRUS [place] HUMAN HOLDINGS HOLDINGS AMPLIFIED PROBE TQ CYTP C/V 74105 LABORATOR LABORATOR AUTO THIN 9 Y STACIA OF Y STACIA OF LYR [place] PREPJ SCR HOLDINGS HOLDINGS MNL RESCR PHYS IADNA 49510 LABORATOR LABORATOR NEISSERIA 9 Y STACIA OF Y STACIA OF [place] GONORRHOE HOLDINGS HOLDINGS AE AMPLIFIED PROBE TQ URNLS DIP 85974 HORIZON GRAVES, 9 [facility] W STICK/TAB E CENTER LET RGNT AUTO W/O MICROSCOP Y COLLECTIO 94506 HORIZON PAOLA, N VENOUS 9 [facility] W BLOOD E CENTER VENIPUNCT URE LIPID 90029 LAB STACIA LAB STACIA PANEL 9 AMERIC AMERIC HOLDING HOLDING GENERAL 12515 LAB STACIA LAB STACIA HEALTH 9 AMERIC AMERIC PANEL HOLDING HOLDING Encounters Encounter Start End Date Code Location Performer Type Date HOSPITAL [facility] - 7 7 [facility] - 7 7 [facility] OUTPATIEN INC T INITIAL 25594 [facility] PREVENTIV 7 7 PHYSICIAN E S GROUP MEDICINE NEW PT AGE 18-39YRS OFFICE 88387 [facility] GUI[facility] TRA CONSULTAT 5 5 [place] ION ORTHOPAED NEW/ESTAB ICS PLC PATIENT 40 MIN OFFICE 11560 [facility] OUT[facility]IEN 5 5 T VISIT 15 MINUTES [facility] - 5 5 N OUTPATIEN COMMUNTIY T HOSPITA OFFICE 79650 [facility] OUTPATIEN 5 5 T NEW 30 MINUTES EMERGENCY 98394 [facility] DEPT 5 5 KIN VISIT EMERGENCY HIGH PHYS SEVERITY& THREAT [facility] - 4 4 [facility] T OFFICE 48004 [facility] VALLEJO OUTPATIEN 4 4 SAMANTHA SAMANTHA T NEW 20 MINUTES OFFICE 33521 [facility]HAMM[facility] OUTPATIEN 3 3 MEDICAL COOLER DELIVERER T VISIT SERV 15 FOUNDATIO MINUTES [facility] - 3 3 N INPATIENT COMMUNITY HOSPITA OFFICE 97496 [facility] OUTPATIEN 3 3 MEDICAL COOLER DELIVERER T VISIT SERV 15 FOUNDATIO MINUTES OFFICE 93716 [facility]HAMM[facility] OUTPATIEN 3 3 MEDICAL COOLER DELIVERER T VISIT SERV 15 FOUNDATIO MINUTES OFFICE 84385 CONST[facility]IN MEEKSMAN OUTPATIEN 3 3 MEDICAL COOLER DELIVERER T VISIT SERV 15 FOUNDATIO MINUTES OFFICE 94868 CONST[facility]IN MEEKSMAN OUTPATIEN 3 3 MEDICAL COOLER DELIVERER T VISIT SERV 15 FOUNDATIO MINUTES OFFICE 88977 CON[facility] MEEKSMAN OUTPATIEN 2 2 MEDICAL COOLER DELIVERER T VISIT SERV 15 FOUNDATIO MINUTES OFFICE 20021 CONST[facility]IN MEEKSMAN OUTPATIEN 2 2 MEDICAL COOLER DELIVERER T VISIT SERV 15 FOUNDATIO MINUTES OFFICE 44009 CONST[facility]IN MEEKSMAN OUTPATIEN 2 2 MEDICAL COOLER DELIVERER T VISIT SERV 15 FOUNDATIO MINUTES OFFICE 07613 CONST[facility]IN AARONJB OUTPATIEN 2 2 MEDICAL COOLER DELIVERER T VISIT SERV 15 FOUNDATIO MINUTES OFFICE 10311 CONST[facility]IN AARONJB OUTPATIEN 2 2 MEDICAL COOLER DELIVERER T VISIT SERV 15 FOUNDATIO MINUTES OFFICE 06679 CONST[facility]IN AARONJB OUTPATIEN 2 2 MEDICAL COOLER DELIVERER T VISIT SERV 15 FOUNDATIO MINUTES OFFICE 63845 [facility] AARONJB OUTPATIEN 2 2 MEDICAL COOLER DELIVERER T VISIT SERV 15 FOUNDATIO MINUTES OFFICE 34885 [facility] AARONJB OUTPATIEN 2 2 MEDICAL COOLER DELIVERER T VISIT SERV 15 FOUNDATIO MINUTES N OFFICE 12776 [place] OUTPATIEN 2 2 MEDICAL T NEW 30 SERV MINUTES FOUNDATIO OFFICE 07330 [facility] OUTPATIEN 2 2 [facility] 20 [facility] MINUTES CENTER CENTER PERIODIC 50482 HORIZON GRAVES, PREVENTIV 9 9 [facility] VAL[facility] W E MED EST E CENTER PATIENT 18-39 YRS OFFICE 27824 MAKENZIE SHEEBA, OUTPATIEN 9 9 [facility] NEW 30 E CENTER MINUTES
--- OUTSIDE RECORDS SUMMARY | 2016-08-08 23:52 | External Medical Summary Rpt ---
Demographics Preferred Language Citizen Of [place] Marital Status Unknown Religion Affiliation Unknown Race Unknown Ethnic Group Unknown Author Author , Organization [employer] Address Unknown Phone Unavailable Purpose Continuity of Care Document - through 2016 Immunization No patient found.
[2016-08-08] MEDS ORDERED: BACTROBAN2% TP (23:55)
[2016-08-08] MEDS ORDERED: AUGMENTIN 875-1 EACH PO (23:55)
--- NOTE | 2016-08-08 23:56 | Emergency Room Report ---
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 N Clinical Suspician of Infection? Y Mental Status: 1 - Regular (Normal Baseline) Sepsis Risk:Low Sepsis Risk Have you (or family members/close friends) recently traveled outside the [place]? N If Yes, where/when: Have you had exposure to infectious disease within the past month? N TB? Other? Specify: Source patient, RN notes reviewed, old records Exam Limitations no limitations Comment with facial dog bite on sat - now with infection and tender- no other c/o - known dog Cardiac Chest Pain Chest pain indicative of cardiac No Timing/Duration this evening Severity moderate ALLERGIES Coded Allergies: No Known Allergies (05/04/16) History Medical History General CAD? No Angina: No [place]: No Hypertension? No Hyperlipidemia? No CHF? No DVT? No PE? No COPD? No Asthma? No Anemia? No GERD? No Gastric ulcers? No GI Bleed? No Hernia? No Thyroid Problems? No Hypothyroidism? No CVA? No Seizures? No Diabetes? No Renal Insuffiency? No End Stage Renal Disease? No UTI? Yes Stones? No BPH? No GB Disease: No Nephritic Syndrome? No Asplenia? No Hepatitis? No Sickle Cell Disease? No Migraines? No Cataracts? No Glaucoma? No MRSA? No HIV? No TB? No Anxiety? No Depression? No Cancer? No More? 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 Respiratory denies cough, denies shortness of breath, denies wheezing Cardiovascular denies chest pain, denies palpitations, denies syncope Gastrointestinal denies abdominal pain, denies diarrhea, denies vomiting Genitourinary denies: dysuria, frequency, hesitancy, hematuria. Musculoskeletal denies back pain, denies joint pain, denies joint swelling, denies neck pain Skin see HPI, denies rash, other Psychiatric/Neurological denies headache, denies seizure Physical Exam Vital Signs Vital Signs Date Time Temp Pulse Resp B/P Pulse O2 O2 Flow FiO2 Ox Delivery Rate 08/08 2325 98.6 82 18 117/68 97 - WBC >12,000 or <4,000 or 10% bands? 2 or more SIRS Criteria Met? B/P:117/68 MAP:84 Creatinine >2.0? UA output<0.5ml/kg/hr for 2 hrs? Platelet count >100,000? Lactate >2.0mmol/1? INR >1.2 or PTT > than 60 sec? Evidence of Organ Dysfunction? Provider documented clinical suspician of infection? Y Sepsis Criteria Count: 1 Sepsis Risk: Low Sepsis Risk General Appearance no apparent distress Eye Exam - bilateral eye PERRL, bilateral eye EOMI Ear, Nose, Throat normal ENT inspection Neck supple Respiratory Status No: respiratory distress. 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 No Departure Departure Time of Disposition 2348 Disposition DC Home or Self Care(routine) Clinical Impression Primary Impression: Dog bite Qualifiers: Encounter type: initial encounter Qualified Code: W54.0XXA - Bitten by dog, initial encounter Condition STABLE Patient Instructions DI for Dog Bite Additional Instructions keep clean and use meds and see pcp as needed Discharge Counseling Counseled pt/family regarding diagnosis, test results, medications/RX, follow up needs Prescriptions Current Visit Scripts Amoxicillin/Potassium Clav (Augmentin 875-125 Tablet) 1 EACH PO BID #14 TAB MUPIROCIN 2% (Bactroban Oint) 1 MIKHAIL TP BID #1 TUBE ED Critical Care Critical Care No at 4578
--- NOTE | 2016-08-08 23:56 | Emergency Room Report ---
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 N Clinical Suspician of Infection? Y Mental Status: 1 - Regular (Normal Baseline) Sepsis Risk:Low Sepsis Risk Have you (or family members/close friends) recently traveled outside the [place]? N If Yes, where/when: Have you had exposure to infectious disease within the past month? N TB? Other? Specify: Source patient, RN notes reviewed, old records Exam Limitations no limitations Comment with facial dog bite on sat - now with infection and tender- no other c/o - known dog Cardiac Chest Pain Chest pain indicative of cardiac No Timing/Duration this evening Severity moderate ALLERGIES Coded Allergies: No Known Allergies (05/04/16) History Medical History General CAD? No Angina: No [place]: No Hypertension? No Hyperlipidemia? No CHF? No DVT? No PE? No COPD? No Asthma? No Anemia? No GERD? No Gastric ulcers? No GI Bleed? No Hernia? No Thyroid Problems? No Hypothyroidism? No CVA? No Seizures? No Diabetes? No Renal Insuffiency? No End Stage Renal Disease? No UTI? Yes Stones? No BPH? No GB Disease: No Nephritic Syndrome? No Asplenia? No Hepatitis? No Sickle Cell Disease? No Migraines? No Cataracts? No Glaucoma? No MRSA? No HIV? No TB? No Anxiety? No Depression? No Cancer? No More? 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 Respiratory denies cough, denies shortness of breath, denies wheezing Cardiovascular denies chest pain, denies palpitations, denies syncope Gastrointestinal denies abdominal pain, denies diarrhea, denies vomiting Genitourinary denies: dysuria, frequency, hesitancy, hematuria. Musculoskeletal denies back pain, denies joint pain, denies joint swelling, denies neck pain Skin see HPI, denies rash, other Psychiatric/Neurological denies headache, denies seizure Physical Exam Vital Signs Vital Signs Date Time Temp Pulse Resp B/P Pulse O2 O2 Flow FiO2 Ox Delivery Rate 08/08 2325 98.6 82 18 117/68 97 - WBC >12,000 or <4,000 or 10% bands? 2 or more SIRS Criteria Met? B/P:117/68 MAP:84 Creatinine >2.0? UA output<0.5ml/kg/hr for 2 hrs? Platelet count >100,000? Lactate >2.0mmol/1? INR >1.2 or PTT > than 60 sec? Evidence of Organ Dysfunction? Provider documented clinical suspician of infection? Y Sepsis Criteria Count: 1 Sepsis Risk: Low Sepsis Risk General Appearance no apparent distress Eye Exam - bilateral eye PERRL, bilateral eye EOMI Ear, Nose, Throat normal ENT inspection Neck supple Respiratory Status No: respiratory distress. 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 No Departure Departure Time of Disposition 2348 Disposition DC Home or Self Care(routine) Clinical Impression Primary Impression: Dog bite Qualifiers: Encounter type: initial encounter Qualified Code: W54.0XXA - Bitten by dog, initial encounter Condition STABLE Patient Instructions DI for Dog Bite Additional Instructions keep clean and use meds and see pcp as needed Discharge Counseling Counseled pt/family regarding diagnosis, test results, medications/RX, follow up needs Prescriptions Current Visit Scripts Amoxicillin/Potassium Clav (Augmentin 875-125 Tablet) 1 EACH PO BID #14 TAB MUPIROCIN 2% (Bactroban Oint) 1 MIKHAIL TP BID #1 TUBE ED Critical Care Critical Care No at 5262
[2016-08-09 00:28] VITALS: BP 95/50
== END 2016-08-09 00:33 | disposition home or self-care (01) ==
LOC: ER 23:18
DX: L03.213 Periorbital cellulitis (principal); W54.0XXA Bitten by dog, initial encounter